=== PATIENT | female | born 1990 | race African-American/Black ===

== ENCOUNTER 2018-05-21 23:06 | Emergency (ER) | payer BC ==
[2018-05-22 00:34] LABS: Bilirubin Negative (Negative); Blood, Urine Negative (Negative); Clarity CLEAR (Clear); Glucose, Urine (Dipstick) Negative (Negative); Leukocyte Negative (Negative); Nitrite Negative (Negative); Protein, Urine (Dipstick) Trace mg/dL (Neg-Trace); Specific Gravity, Urine 1.033 (1.002-1.036)
[2018-05-22 00:45] LABS: Pregnancy Test - Urine (BHCG) Negative (Negative); Pregu Control Background? CLEAR/WHITE (CLR/WHITE); Pregu Control Bar Appear? YES (CONTROL BAR); Specific Gravity 1.033 (1.002-1.036)
[2018-05-22] MEDS ORDERED: Ketorolac Tromethamine 60 MG/2 ML VIAL ONE (00:50)
== END 2018-05-22 01:10 | disposition home or self-care (01) ==
LOC: ERS 23:06
DX: M54.5 Low back pain (principal)
CPT/HCPCS: 81003; 81025; 87086; 96372; J1885

== ENCOUNTER 2018-10-19 20:27 | Emergency (ER) | payer BC ==
[2018-10-19 21:00] LABS: Bilirubin Negative (Negative); Blood, Urine Negative (Negative); Clarity CLEAR (Clear); Glucose, Urine (Dipstick) Negative (Negative); Leukocyte Negative (Negative); Nitrite Negative (Negative); Protein, Urine (Dipstick) Trace mg/dL (Neg-Trace); Specific Gravity, Urine 1.017 (1.002-1.036); Urobilinogen 0.2 mg/dL (0.2-1.0); pH, Urine 8.5 (5.0-9.0)
[2018-10-19 21:16] LABS: #Lymphocytes 2.1 thou/uL (1.20-3.40); #Monocytes 0.6 thou/uL (0.11-0.59); #Neutrophils 3.4 thou/uL (1.40-6.50); %Basophils 0.4 % (0.0-1.0); %Eosinophils 0.7 % (0.0-10.0); %Lymphocytes 33.8 % (21.0-51.0); %Monocytes 9.4 % (0.0-10.0); %Neutrophils 55.8 % (42.0-75.0); Hemoglobin 12.2 g/dL (12.0-16.0); Mean Corpuscular HGB CONC 33.7 g/dL (32.0-36.0); Mean Corpuscular Hemoglobin 29.9 pg (27.0-31.0); Mean Corpuscular Volume 88.6 fL (78.0-98.0); Mean Platelet Volume 7.5 fL (7.4-10.4); Platelet Count 262 thou/uL (130-400); RBC Distribution Width 12.4 % (11.5-14.5); Red Blood Cell (RBC) Count 4.08 mill/uL (4.20-5.40); White Blood Cell (WBC) Count 6.2 thou/uL (4.8-10.8)
[2018-10-19 21:34] LABS: ALT (SGPT) 13 U/L (8-55); AST (SGOT) 10 U/L (5-34); Albumin 4.2 g/dL (3.5-5.0); Alkaline Phosphatase 62 U/L (40-150); Anion Gap 12 mmol/L (10-20); BUN (Urea Nitrogen) 6 mg/dL (7.0-18.7); Bilirubin, Total 0.3 mg/dL (0.2-1.2); Calc. Creatinine Clearance 0 mL/min (70-130); Calcium 9.4 mg/dL (7.8-10.44); Carbon Dioxide 20 mmol/L (22-29); Chloride 106 mmol/L (98-107); Estimated GFR-MDRD Greater than 90; Globulin 3.1 g/dL (2.4-3.5); Glucose 90 mg/dL (70-105); Potassium 3.4 mmol/L (3.5-5.1); Protein, Total 7.3 g/dL (6.0-8.3); Sodium 135 mmol/L (136-145)
[2018-10-20] MEDS ORDERED: Ondansetron ODT 4 MG TAB ONE (00:41)
--- NOTE | 2018-10-20 08:23 | ULT ---
PRELIMINARY REPORT/[facility]/AFTER HOURS PROCEDURE EXAM: US First Trimester, Transabdominal EXAM DATE/TIME: 10/20/2018 12:41 AM CLINICAL HISTORY: 28 years old, female; Other: Rlq pain, no bleeding; Gestational age or lmp: 7w5d; TECHNIQUE: Imaging protocol: Real-time transabdominal obstetrical ultrasound of the maternal pelvis and a first trimester , less than 14 weeks 0 days, with image documentation. COMPARISON: No relevant prior studies available. FINDINGS: GESTATION: Gestation: Single intrauterine gestational sac containing yolk sac and pole. Heart rate: heart rate 149 beats per minute. Placenta: Unremarkable. No subchorionic bleed. Amniotic fluid: Amniotic and chorionic fluid are normal for gestational age. BIOMETRY: Estimated gestational age: crown-rump length 1.4 cm, which corresponds to a gestational age of 7 weeks, 5 days. Estimated due date: Estimated date of delivery 06/03/19. MATERNAL: Uterus: Uterus is anteverted and measures 10.4 x 6.0 x 6.8 cm. Cervix: Unremarkable. Right adnexa: Right ovary is normal in appearance and measures 4.0 x 3.4 x 4.3 cm. Normal right ovary vascular flow. Left adnexa: Left ovary is normal in appearance and measures 3.1 x 1.8 x 2.5 cm. Normal left ovary vascular flow. Intraperitoneal: No intraperitoneal free fluid. IMPRESSION: Single, living intrauterine gestation with estimated gestational age of 7 weeks, 5 days. Thank you for allowing us to participate in the care of your patient. Dictated and Authenticated by: Milad Ruth MD 10/20/2018 3:19 AM Central Time ([place] & [place]) FINAL REPORT PELVIC ULTRASOUND WITH DOPPLER: PROVIDED CLINICAL HISTORY: Right lower quadrant pain. COMPARISON: None/ FINDINGS/IMPRESSION: Agree with the preliminary interpretation given by ALISHA. Transcribed Date/Time: 10/20/2018 8:28 AM
[2018-10-21 23:35] LABS: Chlamydia by PCR Not Detected (NotDetected); GC by PCR Not Detected (NotDetected)
== END 2018-10-20 02:45 | disposition home or self-care (01) ==
LOC: ERS 20:27
DX: O21.9 Vomiting of pregnancy, unspecified (principal); O99.89 Other specified diseases and conditions complicating pregnancy, childbirth and the puerperium; R10.9 Unspecified abdominal pain; Z3A.01 Less than 8 weeks gestation of pregnancy
CPT/HCPCS: 36415; 76856; 80053; 81003; 84702; 85025; 86900; 86901; 87480; 87491; 87510; 87591; 87660; 93976; 96360; Q0162

== ENCOUNTER 2018-10-28 14:43 | Emergency (ER) | payer BC ==
[2018-10-28 17:15] LABS: Calcium 8.7 mg/dL (7.8-10.44); Chloride 106 mmol/L (98-107); Potassium 3.8 mmol/L (3.5-5.1); Sodium 134 mmol/L (136-145)
[2018-10-28] MEDS ORDERED: Promethazine 25 MG TAB ONE (17:16)
[2018-10-28 17:18] LABS: Albumin 3.6 g/dL (3.5-5.0)
[2018-10-28 17:20] LABS: Glucose 76 mg/dL (70-105)
[2018-10-28 17:21] LABS: Globulin 3.6 g/dL (2.4-3.5); Protein, Total 7.2 g/dL (6.0-8.3)
[2018-10-28 17:22] LABS: Anion Gap 17 mmol/L (10-20); Bilirubin, Total 0.5 mg/dL (0.2-1.2); Carbon Dioxide 15 mmol/L (22-29)
[2018-10-28 17:23] LABS: Alkaline Phosphatase 56 U/L (40-150)
[2018-10-28 17:24] LABS: Calc. Creatinine Clearance 0 mL/min (70-130); Estimated GFR-MDRD Greater than 90
[2018-10-28 17:25] LABS: BUN (Urea Nitrogen) 5 mg/dL (7.0-18.7)
[2018-10-28 17:26] LABS: ALT (SGPT) 13 U/L (8-55); AST (SGOT) 20 U/L (5-34)
[2018-10-28 17:57] LABS: #Lymphocytes 1.8 thou/uL (1.20-3.40); #Monocytes 0.6 thou/uL (0.11-0.59); #Neutrophils 3.8 thou/uL (1.40-6.50); %Eosinophils 0.4 % (0.0-10.0); %Lymphocytes 29.6 % (21.0-51.0); %Monocytes 8.9 % (0.0-10.0); Hemoglobin 11.8 g/dL (12.0-16.0); Mean Corpuscular HGB CONC 33.4 g/dL (32.0-36.0); Mean Corpuscular Hemoglobin 29.6 pg (27.0-31.0); Mean Corpuscular Volume 88.7 fL (78.0-98.0); Mean Platelet Volume 7.8 fL (7.4-10.4); Platelet Count 203 thou/uL (130-400); RBC Distribution Width 12.3 % (11.5-14.5); White Blood Cell (WBC) Count 6.2 thou/uL (4.8-10.8)
== END 2018-10-28 18:25 | disposition home or self-care (01) ==
LOC: ERS 14:43
DX: O21.0 Mild hyperemesis gravidarum (principal); Z3A.08 8 weeks gestation of pregnancy
CPT/HCPCS: 36415; 80053; 85025; 96360; Q0169

== ENCOUNTER 2018-11-05 16:11 | Emergency (ER) | payer BC ==
[2018-11-05 17:04] LABS: #Lymphocytes 1.5 thou/uL (1.20-3.40); #Monocytes 0.4 thou/uL (0.11-0.59); #Neutrophils 3.2 thou/uL (1.40-6.50); %Basophils 0.2 % (0.0-1.0); %Eosinophils 0.3 % (0.0-10.0); %Lymphocytes 28.9 % (21.0-51.0); %Monocytes 8.2 % (0.0-10.0); %Neutrophils 62.3 % (42.0-75.0); Hemoglobin 12.5 g/dL (12.0-16.0); Mean Corpuscular HGB CONC 33.6 g/dL (32.0-36.0); Mean Corpuscular Hemoglobin 29.5 pg (27.0-31.0); Mean Corpuscular Volume 87.9 fL (78.0-98.0); Mean Platelet Volume 7.6 fL (7.4-10.4); Platelet Count 234 thou/uL (130-400); RBC Distribution Width 12.3 % (11.5-14.5); Red Blood Cell (RBC) Count 4.24 mill/uL (4.20-5.40); White Blood Cell (WBC) Count 5.2 thou/uL (4.8-10.8)
[2018-11-05 17:21] LABS: Bilirubin Small (Negative); Blood, Urine Negative (Negative); Glucose, Urine (Dipstick) Negative (Negative); Leukocyte Negative (Negative); Nitrite Negative (Negative); Protein, Urine (Dipstick) 30 mg/dL (Neg-Trace)
[2018-11-05 17:22] LABS: Clarity Clear (Clear)
[2018-11-05 17:31] LABS: Bacteria/HPF None Seen HPF (None Seen); WBC/HPF 0-3 HPF (0-3)
[2018-11-05 17:33] LABS: ALT (SGPT) 11 U/L (8-55); AST (SGOT) 11 U/L (5-34); Albumin 4.1 g/dL (3.5-5.0); Alkaline Phosphatase 57 U/L (40-150); Anion Gap 11 mmol/L (10-20); BUN (Urea Nitrogen) 5 mg/dL (7.0-18.7); Bilirubin, Total 0.6 mg/dL (0.2-1.2); Calc. Creatinine Clearance 0 mL/min (70-130); Carbon Dioxide 25 mmol/L (22-29); Chloride 104 mmol/L (98-107); Estimated GFR-MDRD Greater than 90; Globulin 3.4 g/dL (2.4-3.5); Glucose 84 mg/dL (70-105); Potassium 3.5 mmol/L (3.5-5.1); Protein, Total 7.5 g/dL (6.0-8.3); Sodium 136 mmol/L (136-145)
== END 2018-11-05 18:06 | disposition home or self-care (01) ==
LOC: ERS 16:11
DX: O21.9 Vomiting of pregnancy, unspecified (principal); Z3A.09 9 weeks gestation of pregnancy
CPT/HCPCS: 36415; 80053; 81003; 81015; 85025; 99284

== ENCOUNTER 2019-05-23 21:57 | Day surgery (SDC) | payer BC, MEDICAID ==
[2019-05-23 22:25] VITALS: BP 132/81; TEMP 97.8; BMI 32.6
[2019-05-23] MEDS ORDERED: hydrALAZINE 20 MG/ML VIAL SLOW IVP PRN (22:49)
--- NOTE | 2019-05-23 22:51 | PDOC.LDHP ---
Labor and Delivery H&P HPI: Patient of Dr clark 29 yo at 38 weeks with some slight bloody mucous dsch. Some CTX, no LOF, good FM. ROS: Complete ROS completed and as per HPI Current gestational age (weeks): 38 (3 days) Dating criteria: last menstrual period Grav: 3 Para: 1 OB History Details: X 1 Current complications: none Abnormal US findings: No Past Medical History: none Current medications: pre-jewels vitamins Previous surgical history: none Allergies/Adverse Reactions: Allergies Allergy/AdvReac Type Severity Reaction Status Date / Time No Known Allergies Allergy Verified 05/23/19 22:20 Social history: none - Physical Exam Vital signs reviewed and normal: yes Abnormal vital signs: 132/81 78 97 18 General: NAD, resting Abdomen: gravid Extremeties: no edema FHT: category 1 [place] contractions every: rare CTX - Vaginal Exam cm dilated: 3 Effacement: 50% Station: -1 - Assessment Early Term, latent labor...was 3cm earlier exam at office, same now - Plan Plan: observation in L&D (Class I monitoring...ok for outpatient care. Do not suspect ROM on exam.)
== END 2019-05-23 23:00 | disposition home or self-care (01) ==
LOC: L&D/OP 21:57
PROVIDERS: ATTEND Obstetrics & Gynecology
DX: O47.1 False labor at or after 37 completed weeks of gestation (principal); Z3A.38 38 weeks gestation of pregnancy
CPT/HCPCS: 99282

== ENCOUNTER 2019-05-24 05:17 | Inpatient (IN) | payer BC ==
[2019-05-24 05:59] VITALS: BMI 32.6
[2019-05-24] MEDS ORDERED: Ondansetron PF 4 MG/2 ML Vial IVP PRN ×3 (06:12→11:32)
[2019-05-24] MEDS ORDERED: HYDROcodone/Acetaminophen 5/325 mg Tablet PO PRN ×3 (06:12→11:32)
[2019-05-24] MEDS ORDERED: Promethazine HCl 25 MG/ML VIAL IM PRN ×3 (06:12→11:32)
[2019-05-24] MEDS ORDERED: Lidocaine 1% (PF) 30 ML VIAL SC PRN (06:12)
[2019-05-24] MEDS ORDERED: NS / Oxytocin 40 units/1000ml 1,000 ML IV PRN (06:12)
[2019-05-24] MEDS ORDERED: hydrALAZINE 20 MG/ML VIAL SLOW IVP PRN ×2 (06:12→11:32)
[2019-05-24] MEDS ORDERED: Ibuprofen 800 MG TAB PO PRN (06:12)
[2019-05-24] MEDS ORDERED: Butorphanol Tartrate 1 MG/ML VIAL SLOW IVP PRN (06:12)
[2019-05-24] MEDS ORDERED: Lactated Ringer's 1,000 ML IV SCH (06:15)
[2019-05-24] MEDS: Lactated Ringer's 1,000 ML IV SCH ×2 (06:15→06:56)
[2019-05-24] MEDS ORDERED: NS w/ Oxytocin 10 units 500 ML IV SCH (06:15)
[2019-05-24] MEDS ORDERED: Fentanyl 4 mcg/Bup 0.1% Cadd 100 ML ONE (06:19)
[2019-05-24 06:21] LABS: Hemoglobin 10.8 g/dL (12.0-16.0); Mean Corpuscular HGB CONC 33.4 g/dL (32.0-36.0); Mean Corpuscular Hemoglobin 27.4 pg (27.0-31.0); Mean Corpuscular Volume 82.1 fL (78.0-98.0); Mean Platelet Volume 9.9 fL (7.4-10.4); Platelet Count 180 thou/uL (130-400); RBC Distribution Width 14.5 % (11.5-14.5); Red Blood Cell (RBC) Count 3.93 mill/uL (4.20-5.40); White Blood Cell (WBC) Count 8.3 thou/uL (4.8-10.8)
[2019-05-24] MEDS ORDERED: diphenhydrAMINE 50 MG/ML VIAL IVP PRN (07:00)
[2019-05-24] MEDS ORDERED: Communication Order-Pharmacy FS SCH (07:00)
[2019-05-24] MEDS ORDERED: Acetaminophen 325 MG TAB PO PRN (07:00)
[2019-05-24] MEDS ORDERED: Lactated Ringer's 500 ML IV PRN (07:00)
[2019-05-24] MEDS ORDERED: Fentanyl 4 mcg/Bupivacaine 0.1% Cassette 100 ML EPIDURAL SCH (07:00)
[2019-05-24] MEDS ORDERED: Naloxone HCl 0.4 mg/ml Vial IVP PRN ×2 (07:00)
[2019-05-24] MEDS ORDERED: ePHEDrine/0.9% NaCl/PF SYRINGE 50 mg/10 ml SLOW IVP PRN (07:00)
[2019-05-24 07:03] LABS: HBSAg Index 0.18 S/CO (0-0.99); Hep B Surf Ag Non-Reactive S/CO (NonReactive); Syphilis Antibody Nonreactive (Nonreactive); Syphilis Antibody Index 0.06 S/CO (<1.00 Non-Reactive)
[2019-05-24] MEDS ORDERED: Lidocaine 1% (PF) 30 ML VIAL ONE (09:35)
[2019-05-24] MEDS ORDERED: NS / Oxytocin 40 units/1000ml 1,000 ML ONE (09:35)
--- NOTE | 2019-05-24 11:01 | OP ---
DATE OF PROCEDURE: 05/24/2019 PREOPERATIVE DIAGNOSIS: Term labor. POSTOPERATIVE DIAGNOSIS: Term labor. PROCEDURES PERFORMED: Spontaneous vaginal delivery, second-degree midline laceration. ANESTHESIA: Epidural. ESTIMATED BLOOD LOSS: Less than 500 mL. COMPLICATIONS: None. OPERATIVE FINDINGS: 1. Vigorous male infant, 8 and 9 Apgars, weight pending, to nursery at 10:45. 2. Second-degree midline laceration repaired with 2-0 chromic. 3. Correct count. DISPOSITION: Routine recovery. DESCRIPTION OF PROCEDURE: The patient presented in spontaneous labor at term. She proceeded to complete, completed at approximately 10:30. The patient pushed approximately 4 times and delivered over a well-supported perineum with a second-degree midline laceration. Infant was placed on the maternal abdomen. Delayed cord clamping. Placenta was delivered spontaneously within 5 minutes. Repair of second-degree midline laceration was accomplished with 2-0 chromic on a CT1 needle. Counts were correct. Job ID: [id number]
[2019-05-24] MEDS ORDERED: Bisacodyl 10 MG SUPP PR PRN (11:32)
[2019-05-24] MEDS ORDERED: Preparation H Ointment 28 GM TUBE PR PRN (11:32)
[2019-05-24] MEDS ORDERED: Benzocaine-Menthol 82.5 ML CAN TOP PRN (11:32)
[2019-05-24] MEDS ORDERED: Zolpidem Tartrate 5 MG TAB PO PRN (11:32)
[2019-05-24] MEDS ORDERED: NS / Oxytocin 40 units/1000ml 1,000 ML IV SCH (11:32)
[2019-05-24] MEDS ORDERED: Lanolin Ointment 7 GM TUBE TOP PRN (11:32)
[2019-05-24] MEDS ORDERED: Milk Of Magnesia 30 ML UDCUP PO PRN (11:32)
[2019-05-24] MEDS ORDERED: diphenhydrAMINE 25 MG CAP PO PRN (11:32)
[2019-05-24] MEDS: Ibuprofen 800 MG TAB PO SCH ×2 (11:53→20:01)
[2019-05-24] MEDS: Ferrous Sulfate 325 MG TAB PO SCH (15:13)
[2019-05-24] MEDS: Docusate Calcium (SURFAK) 240 MG CAP PO SCH (20:01)
[2019-05-25] MEDS: HYDROcodone/Acetaminophen 5/325 mg Tablet PO PRN ×3 (03:42→15:55)
[2019-05-25] MEDS ORDERED: Witch Hazel-Glycerin 1 EACH JAR TOP PRN (04:27)
[2019-05-25] MEDS: Ibuprofen 800 MG TAB PO SCH ×2 (04:30→12:27)
--- NOTE | 2019-05-25 07:14 | PRG ---
DATE OF SERVICE: 05/25/2019 Postdelivery day #1 note. SUBJECTIVE: The patient is resting comfortably. She has no complaints. OBJECTIVE: VITAL SIGNS: T-max 99.2, temperature 98.8, pulse 77, respirations 16, and blood pressure 133/89. HEENT: Within normal limits. LUNGS: Clear to auscultation bilaterally. HEART: Regular rate and rhythm. ABDOMEN: Soft and nontender. No rebound or guarding. Fundus is firm. Normal lochia. EXTREMITIES: Without clubbing, cyanosis, or edema. IMPRESSION: Doing well, status post normal spontaneous vaginal delivery approximately 21 hours ago. PLAN: Routine care. Discharge home this morning. Followup at [facility] [place] in 6 weeks. Job ID: [id number]
[2019-05-25] MEDS: Ferrous Sulfate 325 MG TAB PO SCH (08:32)
[2019-05-25] MEDS: Docusate Calcium (SURFAK) 240 MG CAP PO SCH (08:33)
[2019-05-25] MEDS ORDERED: Prenatal Vitamin 1 TAB PO SCH (09:00)
[2019-05-25] MEDS ORDERED: Adacel (T-DAP) 0.5 ML SYRINGE IM ONE (09:00)
[2019-05-25 11:59] VITALS: BP 119/60; TEMP 98.5
== END 2019-05-25 16:40 | disposition home or self-care (01) | DRG 807 ==
LOC: L&D/OP 05:17 → L&D 06:24 → 3SW 14:03
PROVIDERS: ADMIT Obstetrics & Gynecology; ATTEND Obstetrics & Gynecology
PROC: 10E0XZZ Delivery of Products of Conception, External Approach (ICD-10-PCS; principal; 2019-05-24)
PROC: 0KQM0ZZ Repair Perineum Muscle, Open Approach (ICD-10-PCS; 2019-05-24)
DX: O70.1 Second degree perineal laceration during delivery (principal); Z37.0 Single live birth; Z3A.38 38 weeks gestation of pregnancy
CPT/HCPCS: 36415; 51702; 85027; 86780; 86850; 86900; 86901; 87340; 99282; 99285; J2001

== ENCOUNTER 2023-05-12 18:46 | Emergency (ER) | payer SELFPAY | END 2023-05-12 19:31 | disposition home or self-care (01) | LOC: ERS 18:46 | DX: B02.9 Zoster without complications (principal) | CPT/HCPCS: 99282 ==

== ENCOUNTER 2023-05-18 17:06 | Emergency (ER) | payer SELFPAY | END 2023-05-18 20:22 | disposition home or self-care (01) | LOC: ERS 17:06 | DX: B02.9 Zoster without complications (principal) | CPT/HCPCS: 99282 ==